=== PATIENT | female | born 1950 | race Caucasian/White ===

== ENCOUNTER 2019-04-21 09:39 | Emergency (ER) | payer MEDICARE ==
[2019-04-21] MEDS ORDERED: 0.9 % SODIUM CHLORIDE 1,000 ML BAG IV ONE (09:47)
[2019-04-21] MEDS ORDERED: ONDANSETRON HCL IV 4 MG/2 ML VIAL IVP ONE (09:48)
[2019-04-21] MEDS ORDERED: MORPHINE SULFATE 10MG/1ML **1ML VIAL IVP ONE (09:52)
--- NOTE | 2019-04-21 09:53 | Emergency Department Record ---
History of Present Illness - General Chief complaint: Flank Pain Stated complaint: SICK/FLANK PAIN Time Seen by Provider: 04/21/19 09:46 Source: Patient Mode of Arrival: Ambulatory Limitations: No limitations - History of Present Illness Initial comments: 68 yo female presents with fairly abrupt onset of left side pain. She woke up at 8am without symptoms. The pain is sharp. It causes nausea and she vomited once. She denies any fever, dysuria, diarrhea, rash. She states she is normally healthy. No history of renal stones. No history of renal infections. No history of diverticulitis. Dr Reddy is her PCP. Onset/Timin -: Hour(s) Radiation: L flank Severity: Severe Severity scale (1-10): 8 Quality: Sharp Consistency: Constant Improves with: None Worsens with: None Patient : No Associated Symptoms: Nausea/vomiting - Related Data Home Medications Medication Instructions Recorded Confirmed Last Taken Celecoxib 200 mg PO ASDIR 04/21/19 04/21/19 Unknown Previous Rx's Medication Instructions Recorded Hydrocodone/APAP 5/325Mg [[place] 1 each PO Q6H #8 tab 04/21/19 5Mg/325Mg] Ondansetron [Zofran Odt] 4 mg PO Q8H #15 tab.rapdis 04/21/19 Allergies Allergy/AdvReac Type Severity Reaction Status Date / Time vancomycin [VANCOMYCIN] Allergy Unknown HIVES Verified 04/21/19 09:47 Travel Screening - Travel/Exposure Within Last 30 Days Have you traveled within the last 30 days?: No Review of Systems Constitutional: Denies: Chills, Fever, Malaise, Weakness Eyes: Denies: Eye discharge ENT: Denies: Congestion, Throat pain Respiratory: Denies: Cough, Dyspnea Cardiovascular: Denies: Chest pain, Edema, Syncope Endocrine: Denies: Fatigue, Polydipsia, Polyuria Gastrointestinal: Reports: Nausea, Vomiting. Denies: Abdominal pain, Constipation, Diarrhea, Hematemesis Genitourinary: Denies: Dysuria, Frequency, Hematuria, Urgency Musculoskeletal: Reports: Back pain (left flank). Denies: Arthralgia Skin: Denies: Bruising, Change in color, Rash Neurological: Denies: Headache Psychiatric: Denies: Anxiety Hematological/Lymphatic: Denies: Easy bleeding, Easy bruising Past Medical History - SOCIAL HISTORY Smoking Status: Former smoker Alcohol Use: None Drug Use: None - RESPIRATORY Hx Respiratory Disorders: No - CARDIOVASCULAR Hx Cardio Disorders: No - NEURO Hx Neuro Disorders: No - GI Hx GI Disorders: No - Hx Genitourinary Disorders: No - ENDOCRINE Hx Endocrine Disorders: No - MUSCULOSKELETAL Hx Musculoskeletal Disorders: Yes Hx Arthritis: Yes - PSYCH Hx Psych Problems: No - HEMATOLOGY/ONCOLOGY Hx Hematology/Oncology Disorders: No Family Medical History Any Significant Family History?: No Physical Exam - General General Appearance: Alert, Oriented x3, Cooperative, No acute distress Limitations: No limitations - Head Head exam: Atraumatic, Normal inspection - Eye Eye exam: Normal appearance, PERRL. negative: Conjunctival injection, Scleral icterus - ENT ENT exam: Normal exam, Mucous membranes moist Ear exam: Normal external inspection Nasal Exam: Normal inspection Mouth exam: Normal external inspection - Neck Neck exam: Normal inspection - Respiratory Respiratory exam: Normal lung sounds bilaterally. negative: Respiratory distress - Cardiovascular Cardiovascular Exam: Regular rate, Normal rhythm, Normal heart sounds - GI/Abdominal GI/Abdominal exam: Soft. negative: Distended, Guarding, Rebound, Rigid, Tenderness - Rectal Rectal exam: Deferred - exam: Deferred - Extremities Extremities exam: Normal inspection. negative: Pedal edema - Back Back exam: Reports: CVA tenderness (L), Full ROM. Denies: CVA tenderness (R) - Neurological Neurological exam: Alert, Oriented X3 - Psychiatric Psychiatric exam: Normal affect, Normal mood - Skin Skin exam: Dry, Intact, Normal color, Warm Course - Reevaluation(s) Reevaluation #1: 04/21/19 09:54 Vitals reviewed No fever 04/21/19 10:[address] the pain control and nausea control are significantly improved. 04/21/19 10:[address] demonstrated a 1.2mm distal stone. Incidental mild irregular pancreatic tail and a uterine fibroid. The patient and her were informed of both results. I instructed them to see Dr Reddy to discuss follow up if needed of both findings including the pancreas if warranted. 04/21/19 10:58 Normal renal function 04/21/19 10:59 04/21/19 11:20 Pain controlled at this time. She is ready to give a UA. 04/21/19 11:21 The patient was prescribed a controlled substance. The prescription does not exceed three days. MAPS was reviewed at the time of the prescripts The topics of abuse, addiction, over dose, dangers of multiple medications, disposal, and illegal distribution were discussed with the patient. The patient verbalized understanding of the risks of the medication being provided 04/21/19 11:46 UA negative for infection Pain controlled Possible stone in urine sample Medical Decision Making - Lab Data Result diagrams: 04/21/19 09:55 04/21/19 09:55 Disposition Disposition: Discharge Clinical Impression: Renal colic on left side Disposition: Home, Self-Care Condition: (1) Good Instructions: Renal Colic (ED) Additional Instructions: Call your doctor for the next available follow up appointment Review this ER visit and the tests performed with your family doctor including the final CT scan report. You had a small irregular pancreatic tail and a small uterine fibroid. Discuss with your doctor proper follow up or recheck of these findings Return to the ER for a recheck if worse, any new concerns or questions Take the prescriptions provided as directed Prescriptions: Hydrocodone/APAP 5/325Mg [[place] 5Mg/325Mg] 1 each PO Q6H #8 tab Ondansetron [Zofran Odt] 4 mg PO Q8H #15 tab.rapdis Forms: Patient Portal Access Time of Disposition: 11:46 Quality - Quality Measures Quality Measures: N/A - Blood Pressure Screening Does Patient Have Any of the Following: No Blood Pressure Classification: Pre-Hypertensive BP Reading Systolic Measurement: 135 Diastolic Measurement: 68 Screening for High Blood Pressure: < Pre-Hypertensive BP, F/U Documented > [G8950] Pre-Hypertensive Follow-up Interventions: Referral to alternative/primary care provider.
[2019-04-21 10:00] LABS: BASO % 0.9 % (0-6); EOS % 2.3 % (0-6); GRAN % 49.6 % (47-80); HEMATOCRIT 45.1 % (35.0-47.0); HEMOGLOBIN 14.9 gm/dl (11.6-16.0); LYMPH % 38.4 % (16-45); MEAN CELL VOLUME 95.3 fl (81-97); MEAN CORPUSCULAR HEMOGLOBIN 31.5 pg (27-33); MEAN PLATELET VOLUME 8.4 fl (7.4-10.4); MONO % 8.8 % (0-9); PLATELET COUNT 319 K/uL (130-400); RED BLOOD COUNT 4.73 M/uL (3.80-5.40); RED CELL DISTRIBUTION WIDTH 13.8 % (11.5-14.5); WHITE BLOOD COUNT W/O DIFF 6.5 K/uL (4.2-12.2)
[2019-04-21 10:11] LABS: BLOOD UREA NITROGEN 15 mg/dL (8-23); CREATININE 0.7 mg/dL (0.5-0.9); EST GLOMERULAR FILTRATION RATE > 60 mL/min
[2019-04-21 10:12] LABS: TOTAL PROTEIN 7.2 g/dL (6.6-8.7)
[2019-04-21 10:14] LABS: GLUCOSE,RANDOM 160 mg/dL (74-109)
[2019-04-21 10:16] LABS: ALB/GLOB RATIO 1.5 (1.1-1.8); ALBUMIN 4.3 g/dL (4.0-5.0); ALKALINE PHOSPHATASE 100 U/L (35-104); ALT/SGPT 26 U/L (<33); AST/SGOT 21 U/L (10.0-35.0)
[2019-04-21] MEDS ORDERED: KETOROLAC 30 MG/ML VIAL IVP ONE (10:44)
[2019-04-21 11:30] LABS: URINE APPEARANCE CLOUDY; URINE BILIRUBIN NEGATIVE (NEGATIVE); URINE BLOOD LARGE (NEGATIVE); URINE COLOR YELLOW; URINE GLUCOSE (UA) NEGATIVE (NEGATIVE); URINE KETONE TRACE (NEGATIVE); URINE LEUKOCYTE ESTERASE NEGATIVE (NEGATIVE); URINE NITRITE NEGATIVE (NEGATIVE); URINE PROTEIN TRACE (NEGATIVE); URINE UROBILINOGEN 0.2 E.U./dL (0.20 - 1.00)
[2019-04-21 11:36] LABS: URINE BACTERIA 1+; URINE EPITHELIAL CELLS 36 - 50 (FEW); URINE WBC NONE SEEN (0-2/hpf)
--- NOTE | 2019-04-23 13:15 | CT SCAN REPORT ---
EXAM: CT OF THE ABDOMEN AND PELVIS WITHOUT CONTRAST HISTORY: SUDDEN ONSET OF SEVERE LEFT FLANK PAIN. TECHNIQUE: Thin collimation helical CT examination of the abdomen and pelvis was performed without oral or intravenous contrast administration. Lack of oral and IV contrast utilization limits evaluation of the bowel and solid viscera respectively. Comparison: Abdominal ultrasound dated 07/18/12. FINDINGS: There are patchy opacities within the dependent lung bases consistent with atelectasis or less likely infiltrate. Minor linear scarring versus atelectasis in the anterior lung bases. No pleural or pericardial effusion. The heart is not grossly enlarged. There is mild diffuse decreased density of the liver relative to the spleen with small areas of sparing in the lateral right liver lobe and central medial segment of the left liver lobe. This low density is consistent with steatosis. No suspicious focal hepatic lesion. There is cholelithiasis without gallbladder wall thickening or pericholecystic fluid. No biliary ductal dilatation is seen. Multiple calcifications are scattered within the posterior aspect of the pancreatic head. This is likely the sequela of pancreatitis/chronic pancreatitis. On the axial images there is apparent mild fullness of the tip of the pancreatic tail. This area measures 3.1 x 2.2 cm. It does not, however, appear mass like on the coronal reformatted images. This likely relates to mild developmental nodularity though a small mass would be difficult to exclude. Comparison to prior examinations, if any exist is recommended. If none exists, further evaluation with pre and post contrast administration multiphase CT or MRI examination would be recommended. The pancreas is otherwise normal in appearance. The spleen and adrenal glands are normal in appearance. The kidneys are normal in position and smoothly marginated. There is a tiny 1 mm nonobstructing calculus in the mid left kidney. There may be a couple tiny adjacent nonobstructing calculi in the upper pole of the right kidney. There is otherwise no nephrolithiasis. No definite renal mass. The right renal collecting system is normal in appearance. There is mild prominence of the left renal collecting system down to the level of the vesicoureteral junction where there is suggestion of a tiny obstructing calculus measuring 1-2 mm. Several small calcifications are also noted at the level of the distal left ureter though likely outside the ureter. Several similar calcifications are noted on the right. No other urinary bladder abnormality is seen. No intraabdominal nor retroperitoneal lymphadenopathy. There is mild diffuse atherosclerosis without aneurysmal dilatation of the abdominal aorta nor iliac arteries. There is a small fat filled umbilical hernia. The abdominal wall is otherwise unremarkable. No gross bowel dilatation nor bowel wall thickening. No evidence of appendicitis. No definite lytic or blastic bone lesion. There is mild chronic appearing superior end plate compression deformity of L1. Degenerative changes are scattered throughout the spine most pronounced at the lumbosacral junction where they are moderate in degree. IMPRESSION: 1. 1-2 MM OBSTRUCTING CALCULUS IN THE LEFT URETEROVESICAL JUNCTION CAUSING MILD UPSTREAM COLLECTING SYSTEM DILATATION. TINY NONOBSTRUCTING CALCULUS IN THE MID LEFT KIDNEY AND THERE IS POSSIBLE TWO TINY NONOBSTRUCTING CALCULI IN THE UPPER POLE OF THE RIGHT KIDNEY. 2. HEPATIC STEATOSIS. 3. MULTIPLE CALCIFICATIONS IN THE POSTERIOR PANCREATIC HEAD LIKELY THE SEQUELA OF PANCREATITIS. APPARENT MINOR PROMINENCE OF THE PANCREATIC TAIL TIP ON AXIAL IMAGES, DISCUSSED ABOVE. 4. NOT MENTIONED ABOVE IS A QUESTIONABLE CONTOUR DEFORMING MASS ARISING WITHIN THE LEFT POSTEROLATERAL UTERINE BODY MEASURING 1.4 CM. THIS IS LIKELY A SMALL FIBROID. JOB NUMBER: [id number] [facility]
== END 2019-04-21 12:28 | disposition home or self-care (01) ==
LOC: ER 09:39
DX: N20.0 Calculus of kidney (principal); R11.2 Nausea with vomiting, unspecified; Z87.891 Personal history of nicotine dependence
CPT/HCPCS: 74176; 80053; 81001; 85025; 96361; 96374; 96375; 99284; J1885; J2270; J2405; J7030